=== PATIENT | female | born 1985 | race Caucasian/White ===

== ENCOUNTER 2017-04-03 16:41 | Emergency (ER) | payer OTHER ==
[2017-04-03] MEDS ORDERED: ONDANSETRON 4 MG TAB.RAPDIS PO ONE (18:14)
[2017-04-03] MEDS ORDERED: OXYCODONE-ACETAMINOPHEN 5-325 MG TABLET PO ONE (18:14)
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
[2017-04-03] MEDS ORDERED: LIDOCAINE 2% JELLY 30 ML TUBE TOP ONE (19:24)
[2017-04-03] MEDS ORDERED: MUPIROCIN 2% OINTMENT 22 GM TP ONE (19:24)
[2017-04-03] MEDS ORDERED: CYCLOBENZAPRINE HCL 10 MG TABLET PO ONE (19:24)
[2017-04-03] MEDS ORDERED: HYDROCODONE/ACETAMINOPHEN 5-325 MG 6 TAB/DSPK PO PRN (19:27)
[2017-04-03] MEDS ORDERED: LIDOCAINE 2% JELLY 30 ML TUBE ONE (19:45)
[2017-04-03 20:09] VITALS: BP 123/63
== END 2017-04-03 20:08 | disposition home or self-care (01) ==
LOC: ER 16:41
DX: S60.052A Contusion of left little finger without damage to nail, initial encounter (principal); S50.811A Abrasion of right forearm, initial encounter; V49.50XA Passenger injured in collision with unspecified motor vehicles in traffic accident, initial encounter; W22.12XA Striking against or struck by front passenger side automobile airbag, initial encounter; M79.642 Pain in left hand; M79.601 Pain in right arm; Z88.2 Allergy status to sulfonamides
CPT/HCPCS: 99283; 73130; S0119; J3490